=== PATIENT | female | born 1950 | race Caucasian/White ===

== ENCOUNTER 2017-11-01 12:45 | Emergency (ER) | payer MEDICARE, OTHER ==
[~2017-11-01] VITALS: Ht 157.5 cm; Wt 77.0 kg
[2017-11-01] MEDS ORDERED: LIDOcaine 1.5% w/epinephrine 1:200,000 5ml ampul IJ ONE (13:00)
[2017-11-01] MEDS ORDERED: HYDROcodone/acetaminophen 10/325mg tab PO ONE (13:00)
[2017-11-01] MEDS ORDERED: ondansetron 4mg rapidly disintigrating tab PO ONE (14:55)
[2017-11-01 15:38] LABS: COLOR,SYNOVIAL FLUID RED
[2017-11-01 15:39] LABS: APPEARANCE,SYNOVIAL FLUID BLOODY; CRYSTAL ID, SYN FLD URIC ACID; SYN RBC 22750 /CU MM (0); SYN WBC 24000 /CU MM (0-200); SYNOVIAL FLUID CRYSTALS QT FEW
[2017-11-01] MEDS ORDERED: prednisone 10mg tablet PO ONE (15:40)
[2017-11-01] MEDS ORDERED: predniSONE 20 mg tablet PO ONE (15:55)
[2017-11-01] MEDS ORDERED: PRED20TA PO (16:00)
[2017-11-01 16:25] VITALS: BP 143/65
== END 2017-11-01 16:27 | disposition home or self-care (01) ==
LOC: ER 12:45
DX: M10.9 Gout, unspecified (principal); I10 Essential (primary) hypertension; E11.9 Type 2 diabetes mellitus without complications
CPT/HCPCS: 20610; 73564; 87070; 89051; 89060; 99285; J3490; J7512

== ENCOUNTER 2020-03-07 10:01 | Inpatient (IN) | payer MEDICARE ==
[~2020-03-07] VITALS: Ht 154.9 cm; Wt 79.5 kg
[2020-03-07] VITALS (13 sets, daily range): BP systolic 132–171; BP diastolic 50–67
[2020-03-07 11:04] LABS: BASOPHILS % (AUTO) 0.4 % (0-1); EOSINOPHILS # (AUTO) 0.1 X10'3 (0-0.9); EOSINOPHILS % (AUTO) 1.1 % (0-6); LYMPHOCYTES % (AUTO) 12.2 % (21-51); MEAN CORPUSCULAR HEMOGLOBIN 19.9 PG (27.0-31.0); MEAN CORPUSCULAR HGB CONC 30.6 g/dL (33.0-36.5); MEAN PLATELET VOLUME 7.5 FL (7.4-10.4); MONOCYTES # (AUTO) 0.3 X10'3 (0-0.9); MONOCYTES % (AUTO) 4.2 % (2-12); NEUTROPHILS # (AUTO) 6.6 X10'3 (1.8-7.7); NEUTROPHILS % (AUTO) 82.1 % (42-75); PLATELET COUNT 245 X10'3 (140-440); RED BLOOD COUNT 1.93 X10'6 (4.20-5.60); RED CELL DISTRIBUTION WIDTH 20.8 % (11.5-14.5)
[2020-03-07 11:07] LABS: HEMATOCRIT 12.5 % (35.0-45.0); HEMOGLOBIN 3.8 g/dl (12.0-16.0)
[2020-03-07 11:19] LABS: ALANINE AMINOTRANSFERASE 19 U/L (12-78); ALBUMIN 3.4 G/DL (3.4-5.0); ALBUMIN/GLOBULIN RATIO 1.1 (1.1-1.5); ALKALINE PHOSPHATASE 77 IU/L (46-116); ANION GAP 11 (8-16); ASPARTATE AMINO TRANSFERASE 14 U/L (10-37); BILIRUBIN,TOTAL 0.4 MG/DL (0.1-1.0); BLOOD UREA NITROGEN 38 MG/DL (7-18); CALCIUM 8.4 MG/DL (8.5-10.1); CHLORIDE 99 MMOL/L (99-107); CREATININE 1.41 MG/DL (0.40-0.90); GLUCOSE 196 MG/DL (70-104); POTASSIUM 4.2 MMOL/L (3.5-5.1); SODIUM 134 MMOL/L (135-145); TOTAL CARBON DIOXIDE 23.9 MMOL/L (24-32); TOTAL PROTEIN 6.6 G/DL (6.4-8.2); eGFR 37 ML/MIN
--- NOTE | 2020-03-07 11:42 | NUR ---
at bedside with Dr Xavier from rectal examine and hemocult, hemocult was negative
[2020-03-07 11:59] LABS: ANISOCYTOSIS 3+; MICROCYTOSIS 2+; PLATELET ESTIMATE NORMAL
[2020-03-07 12:00] LABS: HYPOCHROMASIA 1+; POLYCHROMASIA 1+
[2020-03-07] MEDS ORDERED: ondansetron/PF 4mg/2ml inj IV PRN (12:10)
[2020-03-07] MEDS ORDERED: mag hydrox/Alum hydrox/simeth 30ml oral suspension PO PRN (12:10)
[2020-03-07] MEDS ORDERED: magnesium hydroxide 30ml (MOM) UD suspension PO PRN (12:10)
[2020-03-07] MEDS ORDERED: acetaminophen 325mg tablet PO PRN (12:10)
[2020-03-07] MEDS ORDERED: SIMV-45 PO (12:59)
[2020-03-07] MEDS ORDERED: INDO50CA96 PO (12:59)
[2020-03-07] MEDS ORDERED: METF-950 PO (12:59)
[2020-03-07] MEDS ORDERED: ALLO100T PO (12:59)
[2020-03-07] MEDS ORDERED: GLIP5TAB13 PO (12:59)
[2020-03-07] MEDS ORDERED: ENAL10TA19 PO (12:59)
[2020-03-07] MEDS ORDERED: HYDR25TA4 PO (12:59)
--- NOTE | 2020-03-07 13:59 | NUR ---
Attempted to call for report to ER. On hold and need to do patient care.
--- NOTE | 2020-03-07 15:00 | NUR ---
Report received from Latrice RN in ER at 1415. Pt arrived to Room 348B at 1500. VSS, Assessed, pt states she feels better after first unit of PRBCs. O2 2L on for low H/H. Pt oriented to Room. Opportunity to ask questions given.
[2020-03-07 15:12] LABS: OCCULT BLOOD STOOL NEGATIVE (Neg)
--- NOTE | 2020-03-07 15:37 | NUR ---
phoned Lab, Tech on her way to draw H/H.
--- NOTE | 2020-03-07 16:30 | NUR ---
Problems reprioritized. Patient report given, questions answered & plan of care reviewed with Kenia HERNANDEZ.
[2020-03-07 16:46] LABS: MEAN CORPUSCULAR HEMOGLOBIN 21.8 PG (27.0-31.0); MEAN CORPUSCULAR HGB CONC 31.3 g/dL (33.0-36.5); MEAN CORPUSCULAR VOLUME 69.6 FL (78-98); MEAN PLATELET VOLUME 8.2 FL (7.4-10.4); PLATELET COUNT 237 X10'3 (140-440); RED BLOOD COUNT 2.39 X10'6 (4.20-5.60); RED CELL DISTRIBUTION WIDTH 24.7 % (11.5-14.5); WHITE BLOOD COUNT 6.6 X10'3 (4.5-11.0)
[2020-03-07 16:59] LABS: HEMATOCRIT 16.7 % (35.0-45.0)
--- NOTE | 2020-03-07 17:03 | NUR ---
PAGER ID: [phone] MESSAGE: RE: Room 348B, Cheri Hubbard. Critical values: hemoglobin 5.2, hematocrit is 16.7. Thank you, [facility] [phone]
[2020-03-07] MEDS: metFORMIN 500mg tablet PO SCH ×2 (17:30→21:00)
--- NOTE | 2020-03-07 17:40 | NUR ---
PAGER ID: [phone] MESSAGE: RE: room 348B, Cheri Hubbard. pt's BG is 246. Gave 1700 Glucophage (QID), Glipizide ordered , however, she has CT with contrast tomorrow. Do you want these meds held? Do you want sliding scale for insulin? thank you, [facility] [phone]
--- NOTE | 2020-03-07 19:04 | NUR ---
I have received report from Neena HERNANDEZ and had the opportunity to ask questions and assume patient care.
[2020-03-07] MEDS ORDERED: glipizide 5mg tablet PO SCH (20:00)
[2020-03-07] MEDS: diatr meglu/diatrizoate 30ml oral sol.-(3 dose) bottle PO SCH (21:49)
[2020-03-07] MEDS ORDERED: MESSAGE TO PHARMACY PO ONE (22:45)
[2020-03-07] MEDS ORDERED: dextrose 50%-water 50ml dispensing syringe IV PRN ×2 (22:45)
[2020-03-07] MEDS ORDERED: glucagon, human recombinant 1mg kit SUBCUT PRN (22:45)
[2020-03-07] MEDS ORDERED: dextrose ORAL solution 15 GM/59 ML bottle PO PRN ×2 (22:45)
[2020-03-07] MEDS ORDERED: insulin Lispro (HumaLOG) vial - multi-dose SQ SCH (22:45)
--- NOTE | 2020-03-07 23:41 | NUR ---
Lab called. Unable to get HA1C d/t low hgb and pt receiving 4 units prbc no HA1C can be done for 3 months.
[2020-03-08] VITALS (11 sets, daily range): BP systolic 140–172; BP diastolic 41–59
[2020-03-08 00:27] LABS: MEAN CORPUSCULAR HEMOGLOBIN 22.8 PG (27.0-31.0); MEAN CORPUSCULAR HGB CONC 31.6 g/dL (33.0-36.5); MEAN CORPUSCULAR VOLUME 72.2 FL (78-98); MEAN PLATELET VOLUME 8.1 FL (7.4-10.4); PLATELET COUNT 234 X10'3 (140-440); RED BLOOD COUNT 2.69 X10'6 (4.20-5.60); RED CELL DISTRIBUTION WIDTH 24.7 % (11.5-14.5)
[2020-03-08 00:28] LABS: HEMOGLOBIN 6.1 g/dl (12.0-16.0)
[2020-03-08 00:29] LABS: HEMATOCRIT 19.4 % (35.0-45.0)
--- NOTE | 2020-03-08 06:44 | NUR ---
Problems reprioritized. Patient report given, questions answered & plan of care reviewed with Neena HERNANDEZ.
--- NOTE | 2020-03-08 07:04 | NUR ---
phoned Lab, need H/H drawn. They will send someone.
--- NOTE | 2020-03-08 07:05 | NUR ---
Patient in room ROD 348. I have received report from Lisa HERNANDEZ and had the opportunity to ask questions and assume patient care.
[2020-03-08 07:16] LABS: BASOPHILS # (AUTO) 0.1 X10'3 (0-0.2); BASOPHILS % (AUTO) 1.2 % (0-1); EOSINOPHILS # (AUTO) 0.1 X10'3 (0-0.9); EOSINOPHILS % (AUTO) 1.4 % (0-6); HEMATOCRIT 22.5 % (35.0-45.0); HEMOGLOBIN 7.4 g/dl (12.0-16.0); LYMPHOCYTES # (AUTO) 1.3 X10'3 (1.1-4.8); LYMPHOCYTES % (AUTO) 16.8 % (21-51); MEAN CORPUSCULAR HEMOGLOBIN 24.2 PG (27.0-31.0); MEAN CORPUSCULAR HGB CONC 32.6 g/dL (33.0-36.5); MEAN CORPUSCULAR VOLUME 74.1 FL (78-98); MEAN PLATELET VOLUME 7.8 FL (7.4-10.4); MONOCYTES # (AUTO) 0.4 X10'3 (0-0.9); MONOCYTES % (AUTO) 5.4 % (2-12); NEUTROPHILS # (AUTO) 5.7 X10'3 (1.8-7.7); NEUTROPHILS % (AUTO) 75.2 % (42-75); PLATELET COUNT 234 X10'3 (140-440); RED BLOOD COUNT 3.04 X10'6 (4.20-5.60); RED CELL DISTRIBUTION WIDTH 23.3 % (11.5-14.5); WHITE BLOOD COUNT 7.6 X10'3 (4.5-11.0)
[2020-03-08 07:25] LABS: ALBUMIN 3.1 G/DL (3.4-5.0); ANION GAP 9 (8-16); BLOOD UREA NITROGEN 27 MG/DL (7-18); BUN/CREATININE RATIO 24.8 (6.6-38.0); CALCIUM 8.7 MG/DL (8.5-10.1); CHLORIDE 108 MMOL/L (99-107); CREATININE 1.09 MG/DL (0.40-0.90); GLUCOSE 169 MG/DL (70-104); POTASSIUM 4.2 MMOL/L (3.5-5.1); SODIUM 141 MMOL/L (135-145); TOTAL CARBON DIOXIDE 24.4 MMOL/L (24-32); eGFR 49 ML/MIN
[2020-03-08] MEDS: diatr meglu/diatrizoate 30ml oral sol.-(3 dose) bottle PO SCH ×2 (07:52→10:09)
[2020-03-08] MEDS ORDERED: allopurinol 100mg tablet PO SCH (08:00)
[2020-03-08] MEDS ORDERED: HYDROchlorothiazide 25mg tablet PO SCH (08:00)
[2020-03-08] MEDS ORDERED: lisinopril 20mg tablet PO SCH (08:00)
[2020-03-08] MEDS ORDERED: atorvastatin 20mg tablet PO SCH (08:00)
[2020-03-08 09:27] LABS: ANISOCYTOSIS 3+; MICROCYTOSIS 1+; PLATELET ESTIMATE NORMAL
[2020-03-08] MEDS ORDERED: iohexol 300mg/ml 100ml inj. ONE (10:01)
[2020-03-08 11:47] LABS: HEMOGLOBIN 5.2 g/dl (12.0-16.0)
[2020-03-08] MEDS ORDERED: IRON1TAB PO (12:32)
--- NOTE | 2020-03-08 14:40 | NUR ---
Pt stable and appropriate for d/c. PIV d/c'd cannula intact. Reviewed with Pt all d/c instructions and meds, and to hold Metformin x 48 hrs from 03/08 1100a.m. Pt verbalized understanding and given the opportunity to ask questions, answers provided. Prescriptions escripted to [facility] pharmacy. Pt's home meds returned to her from pharmacy. Pt to call PCP with any questions, concerns or s/sx of complications/worsening symptoms or return to nearest ED. Pt to call PCP to arrange f/u appt once home. Pt escorted to front lobby via w/c with all personal belongings, accompanied by staff member. D/C'd home in private vehicle driven by family friend.
--- NOTE | 2020-03-08 15:13 | NUR ---
DM consult: No A1c available. Per RN unable to obtain A1c d/t pt receiving PRBC. No nutrition education provided. Pt now discharged. Addendum: 03/08/20 at [address] Amended: Links added.
[2020-03-08] MEDS ORDERED: insulin glargine (Lantus) pen - multi-dose SQ SCH (21:00)
== END 2020-03-08 14:40 | disposition home or self-care (01) | DRG 811 ==
LOC: ER 10:02 → ED HOLD 12:06 → OBSVTOIN 12:06 → SUR 3N 14:45
PROVIDERS: ADMIT Family Medicine; ATTEND Family Medicine
PROC: 30233N1 Transfusion of Nonautologous Red Blood Cells into Peripheral Vein, Percutaneous Approach (ICD-10-PCS; principal; 2020-03-07)
PROC: BW251ZZ Computerized Tomography (CT Scan) of Chest, Abdomen and Pelvis using Low Osmolar Contrast (ICD-10-PCS; 2020-03-08)
DX: D62 Acute posthemorrhagic anemia (principal); N17.0 Acute kidney failure with tubular necrosis; E11.9 Type 2 diabetes mellitus without complications; I10 Essential (primary) hypertension; M10.9 Gout, unspecified; Z98.891 History of uterine scar from previous surgery
CPT/HCPCS: 36415; 36430; 71260; 74177; 80048; 80053; 82272; 82948; 85008; 85025; 85027; 86885; 86900; 86901; 86920; 87081; 99285; G0378; J1815; P9016; Q9963; Q9967